=== PATIENT | female | born 1945 | race Two or more races ===

== ENCOUNTER 2017-06-17 08:28 | Emergency (ER) | payer MEDICARE, OTHER ==
[2017-06-17] MEDS ORDERED: HYDR-3713 PO (08:42)
[2017-06-17] MEDS ORDERED: PROP60TA14 PO (08:42)
[2017-06-17] MEDS ORDERED: PRAV10TA4 PO (08:42)
[2017-06-17] MEDS ORDERED: FLOM5CAP PO ×2 (08:42→09:25)
[2017-06-17] MEDS ORDERED: XALA0.007 OU (08:42)
[2017-06-17] MEDS ORDERED: ALEV220C2 PO (08:42)
[2017-06-17] MEDS ORDERED: OXYC1TAB23 PO (08:42)
[2017-06-17] MEDS ORDERED: LANS15CA PO (08:42)
[2017-06-17] MEDS ORDERED: CHEW500C2 PO (08:42)
[2017-06-17] MEDS ORDERED: LOSA50TA5 PO (08:42)
[2017-06-17 08:55] VITALS: BP 146/67
[2017-06-17] MEDS ORDERED: PERC5TAB12 PO (09:25)
[2017-06-24] MEDS ORDERED: FLOM5CAP PO (10:00)
[2017-06-24] MEDS ORDERED: TYLE650T35 PO (10:00)
== END 2017-06-17 09:37 | disposition home or self-care (01) ==
LOC: M ED 08:28
DX: N20.1 Calculus of ureter (principal); N13.4 Hydroureter; R91.1 Solitary pulmonary nodule; K44.9 Diaphragmatic hernia without obstruction or gangrene; I10 Essential (primary) hypertension; E78.9 Disorder of lipoprotein metabolism, unspecified; H26.9 Unspecified cataract; Z79.899 Other long term (current) drug therapy

== ENCOUNTER → 2017-06-18 | Outpatient (CLI) | payer MEDICARE, OTHER ==
[~2017-06-18] MED LIST: ALEV220C2 PO; CHEW500C2 PO; FLOM5CAP PO; HYDR-3713 PO; LANS15CA PO; LOSA50TA5 PO; OXYC1TAB23 PO; PERC5TAB12 PO; PRAV10TA4 PO; PROP60TA14 PO; TYLE650T35 PO; XALA0.007 OU
[2017-06-18 17:34] LABS: INR 1.02
== END ==
LOC: M SMT 08:00
PROVIDERS: ATTEND Nurse Practitioner Women's Health
DX: Z01.818 Encounter for other preprocedural examination (principal); N20.0 Calculus of kidney; Z79.01 Long term (current) use of anticoagulants

== ENCOUNTER → 2017-06-24 | Day surgery (SDC) | payer MEDICARE, OTHER ==
[~2017-06-24] VITALS: Ht 165.1 cm; Wt 95.3 kg
[~2017-06-24] MED LIST changes: +ACETAMINOPHEN TAB 650MG DOSE (2X325MG) PO PRN; +LIDOCAINE 1% SDV 5 ML VIAL SQ ONE; +LIDOCAINE 2% INJ 100 MG/5 ML SDV (FOR ANES.) As Ordered ONE; +LR 1,000 ML IV SCH; +METOCLOPRAMIDE INJ 10MG/2ML VIAL (J2765) IV PRN; +MIDAZOLAM INJ 2 MG/2 ML VIAL (J2250) As Ordered ONE; +ONDANSETRON 4MG/2ML VIAL (J2405) As Ordered ONE; +ONDANSETRON 4MG/2ML VIAL (J2405) IV PRN; +PERCOCET 5MG/325MG TAB PO PRN; +PROPOFOL 200 MG/20 ML VIAL As Ordered ONE; +TAMSULOSIN 0.4 MG CAP PO SCH; +fentaNYL 100 MCG/2 ML INJECTION (J3010) As Ordered ONE
--- NOTE | 2017-06-24 08:43 | REP ---
Supine abdomen: 06/24/2017. Clinical history: The left UPJ stone, 9 mm. Findings: There are no prior studies. The gas pattern is normal. I do not see any definite nephrolithiasis over the renal fossae on either side. The expected course of the ureters also is without visible stone. There are a couple of tiny round smooth calcifications in the right true pelvis most likely phleboliths. The gas pattern nonspecific. Bones with some minor degenerative changes at the SI joints and hips with minimal degenerative changes in the spine. Impression: 1. No compelling plain film evidence for nephrolithiasis or ureteral stone. Signed by José Luis Richter MD 06/24/2017 10:22 A
--- NOTE | 2017-06-24 11:32 | RO ---
DATE OF PROCEDURE: 06/24/2017 PREPROCEDURE DIAGNOSIS: Left UPJ stone. POSTPROCEDURE DIAGNOSIS: Left UPJ stone. FINDINGS: 9 mm left UPJ stone. PROCEDURE: Left extracorporeal shock wave lithotripsy, total of 3000 shock wave lithotripsies. SURGEON: Carlo Noriega MD SCALER PACKER: None. ANESTHESIA: Monitored anesthesia care (MAC). COMPLICATIONS: None. ESTIMATED BLOOD LOSS: N/A. HISTORY OF PRESENT ILLNESS: 72-year-old female patient that has a left UPJ stone of about 9 mm in diameter causing left hydronephrosis. Patient has left pain. For this reason, she has consented for a left extracorporeal shock wave lithotripsy. DESCRIPTION OF PROCEDURE: With the patient in supine position under MAC anesthesia, after finding the stone with ultrasound and x-ray, we gave a total of 3000 shock lithotripsy impulses at a power of 1 to 20. The first 100 shock wave lithotripsies were done at a level of 1 to 5. The following 100 shock wave lithotripsies were done at a level of 6 to 10. The following 100 shock wave lithotripsies were done at a level of 11 to 15. The final 2700 shock waves were done at a level of 16 to 20. The patient tolerated well the procedure. She will be going home today with Alpha dorothy, Flomax and Tylenol extended release arthritis for pain every 8 hours. She will followup at [facility] in 3-[address] scan.
[2017-06-24 12:50] VITALS: BP 122/58
--- NOTE | 2017-06-24 14:34 | ECGEPIP ---
Stationary ECG Study [facility] Test Date: 2017-06-24 Pat Name: WARD BERNAL Department: Room: - Gender: F [employer]niper: ANNELISE : 1945 Requested By: TRIP Lees Order Number: [id number] Reading MD: Cabrera Alejo Measurements Intervals [place] Rate: 63 P: 27 NC: 153 QRS: -37 QRSD: 95 T: -3 QT: 383 QTc: 395 Interpretive Statements SINUS RHYTHM WITH SINUS ARRHYTHMIA LEFT AXIS DEVIATION NONSPECIFIC T-WAVE ABNORMALITY Comparison tracing not on file Electronically Signed On 06-24-2017 14:34:42 EDT by Cabrera Alejo
== END | disposition home or self-care (01) ==
LOC: M SDC 06:31
PROVIDERS: ATTEND Urology
DX: N20.1 Calculus of ureter (principal); E78.5 Hyperlipidemia, unspecified; T88.59XD Other complications of anesthesia, subsequent encounter; I10 Essential (primary) hypertension; E78.00 Pure hypercholesterolemia, unspecified; K21.9 Gastro-esophageal reflux disease without esophagitis; R06.02 Shortness of breath; G43.909 Migraine, unspecified, not intractable, without status migrainosus; H40.9 Unspecified glaucoma; Z79.899 Other long term (current) drug therapy; Z90.710 Acquired absence of both cervix and uterus; Z96.1 Presence of intraocular lens; Z88.5 Allergy status to narcotic agent; Z88.2 Allergy status to sulfonamides; Z88.8 Allergy status to other drugs, medicaments and biological substances
CPT/HCPCS: 50590; 74000; 93005; J0690; J2250; J2405; J3010

== ENCOUNTER → 2017-07-16 | Outpatient (CLI) | payer MEDICARE, OTHER ==
[~2017-07-16] MED LIST changes: -ACETAMINOPHEN TAB 650MG DOSE (2X325MG) PO PRN; -LIDOCAINE 1% SDV 5 ML VIAL SQ ONE; -LIDOCAINE 2% INJ 100 MG/5 ML SDV (FOR ANES.) As Ordered ONE; -LR 1,000 ML IV SCH; -METOCLOPRAMIDE INJ 10MG/2ML VIAL (J2765) IV PRN; -MIDAZOLAM INJ 2 MG/2 ML VIAL (J2250) As Ordered ONE; -ONDANSETRON 4MG/2ML VIAL (J2405) As Ordered ONE; -ONDANSETRON 4MG/2ML VIAL (J2405) IV PRN; -PERCOCET 5MG/325MG TAB PO PRN; -PROPOFOL 200 MG/20 ML VIAL As Ordered ONE; -TAMSULOSIN 0.4 MG CAP PO SCH; -fentaNYL 100 MCG/2 ML INJECTION (J3010) As Ordered ONE
--- NOTE | 2017-07-16 09:35 | REP ---
KUB: Two views presented. History: Kidney stone. Comparison radiograph June 24, 2017. Findings: There are two phleboliths in the lower pelvis on the right. No upper tract calculus is appreciated. No definite ureteral stone seen. Impression: No definite urinary calculi seen. Signed by Александр Haas MD 07/16/2017 03:49 P
== END ==
LOC: M SMT 09:04
PROVIDERS: ATTEND Nurse Practitioner Women's Health
DX: N20.0 Calculus of kidney (principal)

== ENCOUNTER 2023-07-29 06:41 | Day surgery (SDC) | payer MEDICARE, OTHER ==
[~2023-07-29] VITALS: Ht 165.1 cm; Wt 111.1 kg
[~2023-07-29 06:41] MED LIST changes: +ACET650T61 PO; +BRIM0.2S13 OU; +CALC-362 PO; -CHEW500C2 PO; +FLOM0.4C39 PO; -FLOM5CAP PO; +PRAV20TA2 PO; +PROP60CA PO; +TIMO0.5S20 OU; -TYLE650T35 PO; +UNRESOLVED CLARIFICATION ENTRY XX SCH
[2023-07-29] MEDS ORDERED: MIDAZOLAM INJ 2MG/2ML VIAL As Ordered ONE (07:17)
[2023-07-29] MEDS ORDERED: propofoL 200 MG/20 ML VIAL As Ordered ONE (07:17)
[2023-07-29] MEDS ORDERED: fentaNYL 100 MCG/2 ML INJECTION As Ordered ONE (07:17)
[2023-07-29] MEDS ORDERED: LIDOCAINE 2% 100MG/5ML SDV (FOR ANES.) As Ordered ONE (07:17)
[2023-07-29] MEDS ORDERED: ONDANSETRON 4MG 2ML VIAL As Ordered ONE (07:20)
[2023-07-29] MEDS ORDERED: ceFAZolin SOD 2 GM in IV 1 EA IV ONE (07:45)
[2023-07-29] MEDS ORDERED: LR 1,000 ML IV SCH (07:45)
[2023-07-29] MEDS ORDERED: LIDOCAINE 2% 5ML JELLY UROJET As Ordered ONE (07:57)
[2023-07-29] MEDS ORDERED: FLOM0.4C39 PO (08:41)
[2023-07-29] MEDS ORDERED: OXYC1TAB23 PO (08:41)
[2023-07-29 09:40] VITALS: BP 129/62; TEMP 97.5; O2SAT 98
[2023-07-29] MEDS ORDERED: flumazeniL 0.5MG/5ML VIAL As Ordered ONE (11:22)
== END 2023-07-29 09:54 | disposition home or self-care (01) ==
LOC: M SDC 06:41
PROVIDERS: ATTEND Urology
DX: N20.0 Calculus of kidney (principal); N39.41 Urge incontinence; E78.00 Pure hypercholesterolemia, unspecified; G47.30 Sleep apnea, unspecified; Z79.899 Other long term (current) drug therapy; Z90.710 Acquired absence of both cervix and uterus

== ENCOUNTER → 2023-12-27 | Outpatient (CLI) | payer MEDICARE, OTHER ==
[~2023-12-27] MED LIST changes: -UNRESOLVED CLARIFICATION ENTRY XX SCH
== END ==
LOC: M RAD 12:45
PROVIDERS: ATTEND Internal Medicine Nephrology
DX: N17.9 Acute kidney failure, unspecified (principal)
CPT/HCPCS: 78707; A9562

== ENCOUNTER 2024-02-08 06:07 | Day surgery (SDC) | payer MEDICARE, OTHER ==
[~2024-02-08] VITALS: Ht 165.1 cm; Wt 100.9 kg
[~2024-02-08 06:07] MED LIST changes: +NORV5TAB PO; +POTA4.25 PO
[2024-02-08] MEDS ORDERED: LR 1,000 ML IV SCH ×2 (06:50→08:40)
[2024-02-08] MEDS ORDERED: ONDANSETRON 4MG 2ML VIAL As Ordered ONE (07:03)
[2024-02-08] MEDS ORDERED: LIDOCAINE 2% 100MG/5ML SDV (FOR ANES.) As Ordered ONE (07:03)
[2024-02-08] MEDS ORDERED: propofoL 200 MG/20 ML VIAL As Ordered ONE (07:03)
[2024-02-08] MEDS ORDERED: fentaNYL 100 MCG/2 ML INJECTION As Ordered ONE (07:06)
[2024-02-08] MEDS ORDERED: MIDAZOLAM INJ 2MG/2ML VIAL As Ordered ONE (07:06)
[2024-02-08] MEDS: ceFAZolin SOD 2 GM in IV 1 EA IV ONE (07:36)
[2024-02-08] MEDS ORDERED: ACETAMINOPHEN 1000MG 100ML IV BAG As Ordered ONE (07:44)
[2024-02-08] MEDS: ISOVUE-300 61% 100ML VIAL As Ordered ONE (08:36)
[2024-02-08] MEDS ORDERED: fentaNYL 100 MCG/2 ML INJECTION IV PRN (08:40)
[2024-02-08] MEDS ORDERED: ONDANSETRON 4MG 2ML VIAL IV PRN (08:40)
[2024-02-08 09:45] VITALS: BP 182/86; TEMP 97.6; O2SAT 95
== END 2024-02-08 09:45 | disposition home or self-care (01) ==
LOC: M SDC 06:07
PROVIDERS: ATTEND Specialist
DX: N13.1 Hydronephrosis with ureteral stricture, not elsewhere classified (principal); G47.30 Sleep apnea, unspecified; Z88.5 Allergy status to narcotic agent; Z88.8 Allergy status to other drugs, medicaments and biological substances; Z88.2 Allergy status to sulfonamides; Z79.899 Other long term (current) drug therapy
CPT/HCPCS: 52332; 52341; 76000; C1769; C2617; J0131; J0690; J1100; J2250; J2405; J3010; Q9967

== ENCOUNTER → 2025-01-02 | Outpatient (CLI) | payer MEDICARE, OTHER ==
[2025-01-02 15:41] LABS: BASO # 0.1 10^3/uL (0.0-0.2); BASO % 0.7 % (0.0-1.0); EOS # 0.3 10^3/uL (0.0-0.5); EOS % 2.2 % (0.0-3.0); HEMATOCRIT 44.9 % (36.0-47.0); HEMOGLOBIN 13.4 g/dl (12.0-15.5); LYMPH # 1.6 10^3/uL (1.5-5.0); LYMPH % 12.9 % (24.0-44.0); MEAN CORPUSCULAR HEMOGLOBIN 22.8 pg (27.0-33.0); MEAN CORPUSCULAR HGB CONC 29.8 g/dl (32.0-36.5); MEAN CORPUSCULAR VOLUME 76.4 fl (80.0-96.0); MONO # 0.7 10^3/uL (0.0-0.8); MONO % 5.5 % (2.0-8.0); NEUTROPHILS # 9.6 10^3/uL (1.5-8.5); PLATELET COUNT, AUTOMATED 400 10^3/uL (150-450); RED BLOOD COUNT 5.88 10^6/uL (4.00-5.40); WHITE BLOOD COUNT 12.3 10^3/uL (4.0-10.0)
[2025-01-02 15:51] LABS: ERYTHROCYTE SEDIMENTATION RATE 60 mm/hr (0-30)
== END ==
LOC: M PLALAB 13:05
PROVIDERS: ATTEND Internal Medicine Infectious Disease
DX: T84.54XA Infection and inflammatory reaction due to internal left knee prosthesis, initial encounter (principal); Y83.1 Surgical operation with implant of artificial internal device as the cause of abnormal reaction of the patient, or of later complication, without mention of misadventure at the time of the procedure